=== PATIENT | female | born 1960 | race Asian ===

== ENCOUNTER 2017-12-13 14:01 | Emergency (ER) | payer OTHER ==
[~2017-12-13] VITALS: Ht 165.1 cm; Wt 59.4 kg
[2017-12-13 14:06] VITALS: BP 121/76; Ht 165.1 cm; Wt 59.4 kg
== END 2017-12-13 15:45 | disposition home or self-care (01) ==
LOC: ED 14:01
DX: R13.10 Dysphagia, unspecified (principal)

== ENCOUNTER 2018-01-02 09:33 | Inpatient (IN) | payer OTHER ==
[~2018-01-02] VITALS: Ht 152.4 cm; Wt 57.9 kg
[2018-01-02 09:36] VITALS: Ht 152.4 cm; Wt 57.9 kg
[2018-01-02 12:23] LABS: BASOPHIL % 0.7 % (0-2); PLATELET COUNT 218 x10^3mcL (130-400); RED CELL DISTRIBUTION WIDTH 13.3 % (11.5-14.5)
[2018-01-02 12:34] LABS: CALCIUM 9.5 mg/dL (8.5-10.1); CARBON DIOXIDE 26.4 mmol/L (21-32); CHLORIDE SERUM 107 mmol/L (98-107); CREATININE SERUM 0.6 mg/dL (0.6-1.0); GFR1 > 60 mL/min; GLUCOSE SERUM 92 mg/dL (74-106); POTASSIUM SERUM 3.9 mmol/L (3.5-5.1); SODIUM SERUM 141 mmol/L (136-145)
[2018-01-02 12:43] LABS: MAGNESIUM 2.3 mg/dL (1.8-2.4)
[2018-01-02 12:46] LABS: CHOLESTEROL/HDL RATIO 2.4
[2018-01-02 12:50] LABS: FREE T4 1.03 ng/dL (0.76-1.46); FREE THYROXINE INDEX 2.3 ug/dL (1.4-4.5); T4(THYROXINE) 6.8 ug/dL (4.7-13.3)
[2018-01-02 12:51] LABS: T3 TOTAL 0.95 ng/mL
[2018-01-02 13:09] LABS: microscopic required? YES; urine erythrocyte NEGATIVE (NEGATIVE)
[2018-01-02 14:14] LABS: AMPHETAMINE QUAL UR NONE DETECTED (NEG <=1000)
[2018-01-02 14:59] VITALS: BP 109/63
[2018-01-02 17:18] VITALS: BP 118/69
[2018-01-02 20:03] VITALS: BP 94/43
[2018-01-03 05:57] LABS: BASOPHIL % 0.8 % (0-2); PLATELET COUNT 207 x10^3mcL (130-400); RED CELL DISTRIBUTION WIDTH 13.5 % (11.5-14.5)
[2018-01-03 06:01] VITALS: BP 96/54
[2018-01-03 06:26] LABS: CALCIUM 8.9 mg/dL (8.5-10.1); CARBON DIOXIDE 26.2 mmol/L (21-32); CHLORIDE SERUM 111 mmol/L (98-107); CREATININE SERUM 0.6 mg/dL (0.6-1.0); GFR1 > 60 mL/min; GLUCOSE SERUM 90 mg/dL (74-106); MAGNESIUM 2.1 mg/dL (1.8-2.4); POTASSIUM SERUM 3.9 mmol/L (3.5-5.1); SODIUM SERUM 148 mmol/L (136-145)
[2018-01-03 09:49] VITALS: BP 93/48
[2018-01-03 10:52] VITALS: BP 132/71
[2018-01-03] MEDS ORDERED: LEVAQUIN750 MG PO (11:41)
[2018-01-03] MEDS ORDERED: LAC PO (11:41)
[2018-01-03 11:51] VITALS: BP 90/56
== END 2018-01-03 13:49 | disposition home or self-care (01) | DRG 243 ==
LOC: ED 09:33 → DU 12:14 → MU 12:14 → DU 14:38 → MU 01-03 06:18
PROVIDERS: Emergency Medicine; Family Medicine Sports Medicine; Internal Medicine Gastroenterology
PROC: 0DB68ZX Excision of Stomach, Via Natural or Artificial Opening Endoscopic, Diagnostic (ICD-10-PCS; principal; 2018-01-03 09:30)
DX: K22.4 Dyskinesia of esophagus (principal); N17.0 Acute kidney failure with tubular necrosis; E83.39 Other disorders of phosphorus metabolism; K21.9 Gastro-esophageal reflux disease without esophagitis; E87.0 Hyperosmolality and hypernatremia; K27.9 Peptic ulcer, site unspecified, unspecified as acute or chronic, without hemorrhage or perforation; N39.0 Urinary tract infection, site not specified; Z87.891 Personal history of nicotine dependence
CPT/HCPCS: 43235; 83880; 84439; J0696; J1200; J1610; J2250; J2310; J3010; J3490; J7030

== ENCOUNTER 2018-11-03 15:26 | Emergency (ER) | payer OTHER ==
[~2018-11-03] VITALS: Ht 284.5 cm; Wt 57.2 kg
[~2018-11-03 15:26] MED LIST: LAC PO; LEVAQUIN750 MG PO
[2018-11-03 15:35] VITALS: Ht 284.5 cm; Wt 57.2 kg
[2018-11-03 16:10] LABS: BASOPHIL % 0.4 % (0-2); PLATELET COUNT 238 x10^3mcL (130-400); RED CELL DISTRIBUTION WIDTH 13.1 % (11.5-14.5)
[2018-11-03 16:26] LABS: CALCIUM 9.1 mg/dL (8.5-10.1); CARBON DIOXIDE 30.5 mmol/L (21-32); CHLORIDE SERUM 104 mmol/L (98-107); CREATININE SERUM 0.7 mg/dL (0.6-1.0); GFR1 > 60 mL/min; GLUCOSE SERUM 94 mg/dL (74-106); POTASSIUM SERUM 3.6 mmol/L (3.5-5.1); SODIUM SERUM 141 mmol/L (136-145)
[2018-11-03 16:30] LABS: ALBUMIN 3.8 g/dL (3.4-5.0); ALKALINE PHOSPHATASE 70 U/L (46-116); ALT/SGPT 12 U/L (14-59); AST/SGOT 15 U/L (15-37); BILIRUBIN TOTAL 0.33 mg/dL (0.20-1.00); TOTAL PROTEIN, SERUM 7.9 g/dL (6.4-8.2)
[2018-11-03 18:32] VITALS: BP 101/61
== END 2018-11-03 18:32 | disposition home or self-care (01) ==
LOC: ED 15:26
PROVIDERS: Emergency Medicine
DX: S16.1XXA Strain of muscle, fascia and tendon at neck level, initial encounter (principal); H66.92 Otitis media, unspecified, left ear; X58.XXXA Exposure to other specified factors, initial encounter; Y93.89 Activity, other specified; Y92.89 Other specified places as the place of occurrence of the external cause; Y99.8 Other external cause status
CPT/HCPCS: J1885; J7030; Q9967

== ENCOUNTER 2019-09-04 10:59 | Emergency (ER) | payer OTHER ==
[~2019-09-04] VITALS: Ht 167.6 cm; Wt 56.7 kg
[2019-09-04 15:04] VITALS: BP 102/68
== END 2019-09-04 15:04 | disposition home or self-care (01) ==
LOC: ED 10:59
DX: H66.92 Otitis media, unspecified, left ear (principal); H60.92 Unspecified otitis externa, left ear